=== PATIENT | male | born 1995 | race Hispanic/Latino ===

== ENCOUNTER 2019-07-05 21:04 | Inpatient (IN) | payer OTHER ==
[~2019-07-05] VITALS: Ht 188 cm; Wt 97.7 kg
[2019-07-05 21:28] LABS: HEMATOCRIT 46.2 % (42.0-52.0); MEAN CORPUSCULAR HEMOGLOBIN 30.8 pg (27.0-33.0); MEAN CORPUSCULAR HGB CONC 34.6 g/dl (32.0-36.5); PLATELET COUNT, AUTOMATED 291 10^3/uL (150-450); RED BLOOD COUNT 5.19 10^6/uL (4.30-6.10); WHITE BLOOD COUNT 12.8 10^3/uL (4.0-10.0)
[2019-07-05 22:05] LABS: ACETAMINOPHEN LEVEL < 2.0 UG/ML (10.0-30.0); ALBUMIN 4.5 GM/DL (3.2-5.2); ALT/SGPT 48 U/L (12-78); BILIRUBIN,DIRECT < 0.1 MG/DL (0.0-0.2); BILIRUBIN,TOTAL 0.4 MG/DL (0.2-1.0); BLOOD UREA NITROGEN 13 MG/DL (7-18); CALCIUM LEVEL 9.6 MG/DL (8.5-10.1); CARBON DIOXIDE LEVEL 27 MEQ/L (21-32); CHLORIDE LEVEL 106 MEQ/L (98-107); ETHYL ALCOHOL (ETHANOL) < 0.003 % (0.000-0.010); GLOMERULAR FILTRATION RATE > 60.0 (>60); GLUCOSE, FASTING 99 MG/DL (70-100); POTASSIUM SERUM 4.2 MEQ/L (3.5-5.1); SALICYLATE LEVEL < 1.7 MG/DL (5.0-30.0); SODIUM LEVEL 140 MEQ/L (136-145); TOTAL PROTEIN 8.3 GM/DL (6.4-8.2)
[2019-07-05 22:52] LABS: AMPHETAMINES LEVEL URINE NEGATIVE (NEGATIVE); BARBITURATES URINE NEGATIVE (NEGATIVE); BENZODIAZEPINES URINE NEGATIVE (NEGATIVE); CANNABINOIDS URINE NEGATIVE (NEGATIVE); COCAINE METABOLITE URINE NEGATIVE (NEGATIVE); METHADONE URINE NEGATIVE (NEGATIVE); OPIATES URINE NEGATIVE (NEGATIVE); PHENCYCLIDINE URINE NEGATIVE (NEGATIVE)
[2019-07-05] MEDS ORDERED: MOM 30ML SUSPENSION UDC PO PRN (23:15)
[2019-07-05] MEDS ORDERED: MAALOX 30 ML SUSP *UDC PO PRN (23:15)
[2019-07-05] MEDS ORDERED: traZODone 50 MG TAB PO PRN (23:15)
[2019-07-05] MEDS ORDERED: ACETAMINOPHEN TAB 650MG DOSE (2X325MG) PO PRN (23:15)
[2019-07-06 00:04] VITALS: BP 133/68
[2019-07-06 06:41] VITALS: BP 121/69
[2019-07-06] MEDS: VENLAFAXINE **XR** 37.5 MG CAPSULE PO SCH (11:38)
--- NOTE | 2019-07-06 15:25 | HPEPDOC ---
General Date of Admission Jul 05, 2019 at 23:07 Date of Service: Jul 06, 2019 Chief Complaint The patient is a 24-year-old male admitted with a reason for visit of Unspecified Depressive Disorder. History of Present Illness 24-year-old male with past medical history of psychiatric disorder was admitted to the inpatient mental health unit for psychiatric stabilization. At this time, he denies any complaints of fevers, chills, chest pain, palpitations, abdominal pain, or any nausea/vomiting/diarrhea. No acute overnight events noted. The hospitalist service has been consulted for management of medical comorbidities. Home Medications No Active Prescriptions or Reported Meds Allergies Coded Allergies: No Known Allergies (Unverified , 07/05/19) Past Medical History Medical History No significant past medical history, does have a psychiatric history of depression. Surgical History Denies any surgical history. Social History * Smoker: current smoker (smokes 1-2 cigarettes per week) Alcohol: Denies Drugs: denies Review of Systems Other systems 10 point review of systems negative unless otherwise specified in HPI. Physical Examination General Exam: Positive: Alert, Cooperative, No Acute Distress Eye Exam: Positive: Conjunctiva & lids normal ENT Exam: Positive: Atraumatic, Mucous membr. moist/pink Neck Exam: Negative: JVD Chest Exam: Positive: Clear to auscultation, Normal air movement Heart Exam: Positive: Rate Normal, Normal S1, Normal S2 Abdomen Exam: Positive: Soft; Negative: Tenderness Extremity Exam: Negative: Tenderness, Swelling Neuro Exam: Positive: Normal Speech Psych Exam: Positive: Mental status NL, Mood NL, Oriented x 3 Vital Signs Vital Signs Date Time Temp Pulse Resp B/P (MAP) Pulse Ox O2 Delivery O2 Flow Rate FiO2 07/06/19 06:41 96.9 70 12 121/69 (86) 07/06/19 00:04 100 07/05/19 21:07 Room Air Laboratory Data Labs 24H Laboratory Tests 2 07/05/19 21:22: Nucleated Red Blood Cells % (auto) 0.0, Anion Gap 7L, Glomerular Filtration Rate > 60.0, Calcium Level 9.6, Aspartate Amino Transf (AST/SGOT) 39H, Alanine Aminotransferase (ALT/SGPT) 48, Alkaline Phosphatase 95, Total Bilirubin 0.4, Direct Bilirubin < 0.1, Total Protein 8.3H, Albumin 4.5, Albumin/Globulin Ratio 1.18, Thyroid Stimulating Hormone (TSH) 1.410, Salicylates Level < 1.7L, Acetaminophen Level < 2.0L, Ethyl Alcohol Level < 0.003 07/05/19 22:22: Urine Amphetamines Screen NEGATIVE, Urine Benzodiazepines Screen NEGATIVE, Urine Opiates Screen NEGATIVE, Urine Methadone Screen NEGATIVE, Urine Barbiturates Screen NEGATIVE, Urine Phencyclidine Screen NEGATIVE, Urine Cocaine Metabolite Screen NEGATIVE, Urine Cannabinoids Screen NEGATIVE CBC/BMP Laboratory Tests 07/05/19 21:22 Red Blood Count 5.19, Mean Corpuscular Volume 89.0, Mean Corpuscular Hemoglobin 30.8, Mean Corpuscular Hemoglobin Concent 34.6, Red Cell Distribution Width 12.5 Plan / VTE VTE Prophylaxis Ordered?: No VTE Exclusion Mechanical Proph: Low Risk for VTE Plan Plan Psychiatric disorder Management as per psychiatry DVT prophylaxis Ambulation encouraged MARYANA ANTHONY MD Jul 06, 2019 15:25
[2019-07-06 16:32] VITALS: BP 136/68
--- NOTE | 2019-07-07 00:17 | MHHPE ---
DATE OF ADMISSION: 07/05/2019 CURRENT MEDICATIONS: None. CHIEF COMPLAINT: Suicidal ideation with impulses to cut self with a scalpel. 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 The patient has struggled with depression off and on for a number of years but has never sought any help. He has felt more depressed and suicidal of late. He has had impulses to cut himself with a scalpel. Recent precipitating stressor was going back home to [place] and visiting his family. He feels that he is the least accomplished member of the family. He feels inadequate. His self esteem is poor. When he gets depressed, he complains of lack of energy. He feels lethargic. His appetite is poor. His weight is stable. Concentration is poor. Energy is low. He does get periodic panic attacks, but they are rare. The patient states that he does worry a lot and finds it hard to relax. Precipitating stressor is that he admits to having been accused of sexual harassment with females at work and this may adversely affect is career. PAST PSYCHIATRIC HISTORY: Four years ago the patient tried to cut his wrist with scissors. The patient was drinking heavily at the time and his girlfriend intervened. He did not get any help. He has never had any outpatient or inpatient mental health services. He has never been on psychotropic medications. MEDICAL HISTORY: The patient is healthy. ALLERGIES TO MEDICATIONS: The patient denies. LEGAL HISTORY: The patient denies. CHEMICAL DEPENDENCY: The patient denies, he apparently did have an alcohol issue in the past but he minimizes it. He has never been in a rehabilitation program. SOCIAL HISTORY: The patient was born in [place] [facility] [place] 3 [place]. His father is a doctor and a business flight attendant in [place]. His mother is a housewife. He has two sisters, one is an wash oil pump operator and the other one is a business woman. 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 FAMILY PSYCHIATRIC HISTORY: His mother has a history of depression also, but has never been treated. MENTAL STATUS EXAMINATION: The patient is alert, oriented and cooperative. Affect appears sad. His affect is quite flat. No psychomotor retardation. The patient reports moderate to severe depressive symptoms, depressive suicidal ideation. No signs of rajesh. Grooming and hygiene are quite good. Insight and judgment appear fair. No signs of psychosis. Memory functions appear intact. No signs of organicity. DIAGNOSES: 1. Major depression, recurrent. 2. Chronic anxiety disorder. 3. Generalized anxiety disorder. 4. Rule out alcohol use disorder. Length of stay is 7 to 10 days. PLAN: Start trial of Effexor XR 37.5 mg in the morning. The patient was warned about risk of adverse side effects on antidepressants, including the risk of suicidal ideation. Involve patient in therapeutic milieu and coordinate care with family members. 9.39 confirmed.
[2019-07-07 06:38] VITALS: BP 128/63
[2019-07-07] MEDS: VENLAFAXINE **XR** 37.5 MG CAPSULE PO SCH (08:51)
--- NOTE | 2019-07-07 13:26 | IPN ---
DATE: 07/07/2019 I was asked to see Chris in inpatient mental health unit ([facility]). He was palpitations associated with panic attack. No syncope. No past history of supraventricular tachycardia (SVT), palpitations, or early cardiac disease. PHYSICAL EXAM: Vital signs stable. 128/63. Pulse of 60. General appearance: Resting comfortably. Appears anxious. Lungs: Clear. nonpalpable. No tremor. Heart: Regular rate and rhythm. No murmur. No clicks. No rubs. Abdomen: Soft, nontender. No masses. EKG was normal. TSH was normal. IMPRESSION: Palpitations almost certainly related to panic attacks. I do not see a cardiac cause for these and would direct treatment towards his underlying anxiety problems.
[2019-07-07 18:00] VITALS: BP 140/26
[2019-07-07 21:49] VITALS: BP 140/93
[2019-07-08 06:41] VITALS: BP 138/72
--- NOTE | 2019-07-08 08:52 | MHIPNPDOC ---
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 The patient has struggled with depression off and on for a number of years but has never sought any help. He has felt more depressed and suicidal of late. He has had impulses to cut himself with a scalpel. Recent precipitating stressor was going back home to [place] and visiting his family. He feels that he is the least accomplished member of the family. He feels inadequate. His self esteem is poor. When he gets depressed, he complains of lack of energy. He feels lethargic. His appetite is poor. His weight is stable. Concentration is poor. Energy is low. He does get periodic panic attacks, but they are rare. The patient states that he does worry a lot and finds it hard to relax. Precipitating stressor is that he admits to having been accused of sexual harassment with females at work and this may adversely affect is career. VITAL SIGNS: See below. NEW TEST RESULTS: See below. CURRENT MEDICATIONS: See below. MENTAL STATUS EXAMINATION: The patient is alert, oriented and cooperative. Affect appears sad. His affect is quite flat. No psychomotor retardation. The patient reports improved depressive symptoms, denies suicidal ideation. No signs of rajesh. Grooming and hygiene are quite good. Insight and judgment appear fair. No signs of psychosis. Memory functions appear intact. No signs of organicity. DIAGNOSES: 1. Major depression, recurrent. 2. Chronic anxiety disorder. 3. Generalized anxiety disorder. 4. Rule out alcohol use disorder. ASSESSMENT:Pt seen and states that his mood is better. States he slept well last night but is feeling very "groggy" after taking trazodone last night and is agreeable to decreasing the dose so doesn't feel that way tomorrow. Denies any panic attacks since admission. States his came to visit him yesterday wh ich made him feel good and is looking forward to her coming again today. She is very supportive. Feels he is tolerating his medications and it's beneficial. He is attending groups and finding them helpful. He denies SI/HI, hallucinations, delusions. Pt feels safe here. MANAGEMENT PLAN: continue plan Medications: effexor xr 75mg daily trazodone 25mg qhs prn insomnia TIME SPENT: 30 minutes. Vital Signs Vital Signs Date Time Temp Pulse Resp B/P (MAP) Pulse Ox O2 Delivery O2 Flow Rate FiO2 07/08/19 06:41 97.2 68 12 138/72 (94) 07/06/19 00:04 100 07/05/19 21:07 Room Air Current Medications Current Medications Medications (Trade) Dose Ordered Sig/Magdalena Route PRN Reason Start Time Stop Time Status Last Admin Dose Admin Acetaminophen (Tylenol Tab) 650 mg Q6HP PRN PO HEADACHE or DISCOMFORT 07/05/19 23:15 Al Hydrox/Mg Hydrox/Simethicone (Mylanta) 30 ml Q4HP PRN PO HEARTBURN/INDIGESTION 07/05/19 23:15 Home Med (Med Rec Complete!) ASDIRECTED XX 07/05/19 23:45 07/05/19 23:45 DC Magnesium Hydroxide (Milk Of Magnesia) 30 ml DAILYPRN PRN PO CONSTIPATION 07/05/19 23:15 Trazodone HCl (Desyrel) 50 mg QHSP PRN PO INSOMNIA 07/05/19 23:15 07/07/19 21:47 Venlafaxine HCl (Effexor Xr) 37.5 mg DAILY PO 07/06/19 11:00 07/07/19 14:19 DC 07/07/19 08:51 Venlafaxine HCl (Effexor Xr) 75 mg DAILY PO 07/08/19 09:00 Allergies Coded Allergies: No Known Allergies (Unverified , 07/05/19) MARYURI SHAHID DO Jul 08, 2019 8:52 am
[2019-07-08] MEDS: VENLAFAXINE **XR** 75MG CAPSULE PO SCH (09:49)
--- NOTE | 2019-07-08 13:34 | MHIPN ---
DATE: 07/07/2019 VITAL SIGNS: Temperature 98.0, pulse 60, respirations 12, blood pressure 128/63. CURRENT MEDICATIONS: Effexor XR 37.5 mg every morning. HISTORY OF PRESENT ILLNESS: Patient states his visited yesterday and was quite supportive. This was very reassuring for the patient. Patient is still feeling anxious. He had some palpitations. He was seen by the hospitalist, who was not concerned of any cardiac issues. Patient still feels depressed with some racing thoughts. Patient has been on low-dose Effexor for several days now. He is not sure but thinks his mood might be slightly better. He is going to increase the dosage. He has had no adverse side effects from the Effexor at this time. He claims he feels a bit more energetic and motivated since being on it. Patient has been to a few groups. He is encouraged to attend all group therapy functions. MENTAL STATUS EXAMINATION: Patient is alert, oriented, and cooperative. Grooming and hygiene appear quite good. Affect still remains sad. Mood is moderately depressed. He denies current suicidal ideation. He is not psychotic. No signs of rajesh. Insight and judgment remain fair. No signs of organicity DIAGNOSES: 1. Major depressive disorder, recurrent. 2. Panic/anxiety disorder. 3. Generalized anxiety disorder. 4. Rule out alcohol use disorder. PLAN: Increase the Effexor XR to 75 mg every morning. Patient is advised that Dr. Fu will be taking over responsibility for his care tomorrow. Patient encouraged to followup with the milieu therapy program. Staff to monitor for any potential side effects on the Effexor.
[2019-07-08 18:00] VITALS: BP 149/68
[2019-07-08] MEDS: traZODone 25MG PER 1/2 TABLET PO PRN (22:27)
[2019-07-09 06:36] VITALS: BP 128/74
--- NOTE | 2019-07-09 08:41 | MHIPNPDOC ---
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 The patient has struggled with depression off and on for a number of years but has never sought any help. He has felt more depressed and suicidal of late. He has had impulses to cut himself with a scalpel. Recent precipitating stressor was going back home to [place] and visiting his family. He feels that he is the least accomplished member of the family. He feels inadequate. His self esteem is poor. When he gets depressed, he complains of lack of energy. He feels lethargic. His appetite is poor. His weight is stable. Concentration is poor. Energy is low. He does get periodic panic attacks, but they are rare. The patient states that he does worry a lot and finds it hard to relax. Precipitating stressor is that he admits to having been accused of sexual harassment with females at work and this may adversely affect is career. VITAL SIGNS: See below. NEW TEST RESULTS: See below. CURRENT MEDICATIONS: See below. MENTAL STATUS EXAMINATION: The patient is alert, oriented and cooperative. Affect appears sad. His affect is quite flat. No psychomotor retardation. The patient reports improved depressive symptoms, denies suicidal ideation. Continued anxiety and panic occasionally. No signs of rajesh. Grooming and hygiene are quite good. Insight and judgment appear fair. No signs of psychosis. Memory functions appear intact. No signs of organicity. DIAGNOSES: 1. Major depression, recurrent. 2. Chronic anxiety disorder. 3. Generalized anxiety disorder. 4. Rule out alcohol use disorder. ASSESSMENT:Pt seen and states that his mood is better. States he slept well last night and the half dose of Trazodone was much better as no longer "drowsy" as he was yesterday. States he had a minor panic attack yesterday mostly over the "unknown" regarding what will happen in the future with his career in the [employer] and his help him thru with deep breathing. Agreeable to vistaril prn anxiety. His is very supportive. Feels he is tolerating his medications and it's beneficial. He is attending groups and finding them helpful. He denies SI/HI, hallucinations, delusions. Pt feels safe here. MANAGEMENT PLAN: continue plan. add vistaril prn anxiety Medications: effexor xr 75mg daily trazodone 25mg qhs prn insomnia vistaril 25mg q6hr prn anxiety TIME SPENT: 30 minutes. Vital Signs Vital Signs Date Time Temp Pulse Resp B/P (MAP) Pulse Ox O2 Delivery O2 Flow Rate FiO2 07/09/19 06:36 98.8 61 16 128/74 (92) 07/06/19 00:04 100 07/05/19 21:07 Room Air Current Medications Current Medications Medications (Trade) Dose Ordered Sig/Magdalena Route PRN Reason Start Time Stop Time Status Last Admin Dose Admin Acetaminophen (Tylenol Tab) 650 mg Q6HP PRN PO HEADACHE or DISCOMFORT 07/05/19 23:15 Al Hydrox/Mg Hydrox/Simethicone (Mylanta) 30 ml Q4HP PRN PO HEARTBURN/INDIGESTION 07/05/19 23:15 Home Med (Med Rec Complete!) ASDIRECTED XX 07/05/19 23:45 07/05/19 23:45 DC Magnesium Hydroxide (Milk Of Magnesia) 30 ml DAILYPRN PRN PO CONSTIPATION 07/05/19 23:15 Trazodone HCl (Desyrel) 25 mg QHSP PRN PO INSOMNIA 07/08/19 09:45 07/08/19 22:27 Trazodone HCl (Desyrel) 50 mg QHSP PRN PO INSOMNIA 07/05/19 23:15 07/08/19 09:40 DC 07/07/19 21:47 Venlafaxine HCl (Effexor Xr) 37.5 mg DAILY PO 07/06/19 11:00 07/07/19 14:19 DC 07/07/19 08:51 Venlafaxine HCl (Effexor Xr) 75 mg DAILY PO 07/08/19 09:00 07/08/19 09:49 Allergies Coded Allergies: No Known Allergies (Unverified , 07/05/19) MARYURI SHAHID DO Jul 09, 2019 8:41 am
[2019-07-09] MEDS ORDERED: hydrOXYzine 25 MG TAB PO PRN (08:45)
--- NOTE | 2019-07-09 09:07 | ECGEPIP ---
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
[2019-07-09] MEDS: VENLAFAXINE **XR** 75MG CAPSULE PO SCH (09:31)
[2019-07-09 18:30] VITALS: BP 130/65
[2019-07-09] MEDS: traZODone 25MG PER 1/2 TABLET PO PRN (21:09)
[2019-07-10 06:34] VITALS: BP 121/65
[2019-07-10] MEDS: VENLAFAXINE **XR** 75MG CAPSULE PO SCH (08:14)
[2019-07-10 18:00] VITALS: BP 136/74
[2019-07-10] MEDS: traZODone 25MG PER 1/2 TABLET PO PRN (23:00)
[2019-07-11 06:42] VITALS: BP 118/63
[2019-07-11] MEDS: VENLAFAXINE **XR** 75MG CAPSULE PO SCH (08:58)
[2019-07-11 18:00] VITALS: BP 124/69
[2019-07-11] MEDS: traZODone 25MG PER 1/2 TABLET PO PRN (22:36)
[2019-07-12 06:36] VITALS: BP 130/72
[2019-07-12] MEDS: VENLAFAXINE **XR** 75MG CAPSULE PO SCH (10:02)
--- NOTE | 2019-07-12 10:13 | MHIPNPDOC ---
[facility] Progress Note Progress Note DATE OF SERVICE: 07/12/19 HISTORY: Per Dr. 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 The patient has struggled with depression off and on for a number of years but has never sought any help. He has felt more depressed and suicidal of late. He has had impulses to cut himself with a scalpel. Recent precipitating stressor was going back home to [place] and visiting his family. He feels that he is the least accomplished member of the family. He feels inadequate. His self esteem is poor. When he gets depressed, he complains of lack of energy. He feels lethargic. His appetite is poor. His weight is stable. Concentration is poor. Energy is low. He does get periodic panic attacks, but they are rare. The patient states that he does worry a lot and finds it hard to relax. Precipitating stressor is that he admits to having been accused of sexual harassment with females at work and this may adversely affect is career." VITAL SIGNS: See below. NEW TEST RESULTS: See below. CURRENT MEDICATIONS: See below. MENTAL STATUS EXAMINATION: The patient is alert, oriented and cooperative. Affect appears sad. His affect is quite flat. No psychomotor retardation. The patient reports improved depressive and anxiety/panic symptoms, denies suicidal ideation. No signs of rajesh. Grooming and hygiene are quite good. Insight and judgment appear fair. No signs of psychosis. Memory functions appear intact. No signs of organicity. DIAGNOSES: 1. Major depression, recurrent. 2. Chronic anxiety disorder. 3. Generalized anxiety disorder. 4. Rule out alcohol use disorder. ASSESSMENT:Pt seen and states that his mood is better and that he feels overall "calmer". States he's tolerating his medication well and is now finding it beneficial. States vistaril is beneficial for his anxiety and is tolerating it well. Denies any panic symptoms thru out the weekend. States he slept well last night. His is very supportive and visited him thru out the weekend which was good. Feels he is tolerating his medications and it's beneficial. He is attending groups and finding them helpful. He denies SI/HI, hallucinations, delusions. Pt feels safe here. MANAGEMENT PLAN: continue plan. Medications: effexor xr 75mg daily trazodone 25mg qhs prn insomnia vistaril 25mg q6hr prn anxiety TIME SPENT: 30 minutes. Vital Signs Vital Signs Date Time Temp Pulse Resp B/P (MAP) Pulse Ox O2 Delivery O2 Flow Rate FiO2 07/12/19 06:36 98.2 70 12 130/72 (91) 07/06/19 00:04 100 Current Medications Current Medications Medications (Trade) Dose Ordered Sig/Magdalena Route PRN Reason Start Time Stop Time Status Last Admin Dose Admin Acetaminophen (Tylenol Tab) 650 mg Q6HP PRN PO HEADACHE or DISCOMFORT 07/05/19 23:15 Al Hydrox/Mg Hydrox/Simethicone (Mylanta) 30 ml Q4HP PRN PO HEARTBURN/INDIGESTION 07/05/19 23:15 Home Med (Med Rec Complete!) ASDIRECTED XX 07/05/19 23:45 07/05/19 23:45 DC Hydroxyzine HCl (Atarax) 25 mg Q6HP PRN PO ANXIETY 07/09/19 08:45 Magnesium Hydroxide (Milk Of Magnesia) 30 ml DAILYPRN PRN PO CONSTIPATION 07/05/19 23:15 Trazodone HCl (Desyrel) 25 mg QHSP PRN PO INSOMNIA 07/08/19 09:45 07/11/19 22:36 Trazodone HCl (Desyrel) 50 mg QHSP PRN PO INSOMNIA 07/05/19 23:15 07/08/19 09:40 DC 07/07/19 21:47 Venlafaxine HCl (Effexor Xr) 37.5 mg DAILY PO 07/06/19 11:00 07/07/19 14:19 DC 07/07/19 08:51 Venlafaxine HCl (Effexor Xr) 75 mg DAILY PO 07/08/19 09:00 07/12/19 10:02 Allergies Coded Allergies: No Known Allergies (Unverified , 07/05/19) MARYURI SHAHID DO Jul 12, 2019 10:13 am
[2019-07-12 18:15] VITALS: BP 136/68
[2019-07-13 06:34] VITALS: BP 126/72
[2019-07-13] MEDS ORDERED: VENL75CA47 PO (08:43)
[2019-07-13] MEDS ORDERED: HYDR-3363 PO (08:43)
[2019-07-13] MEDS ORDERED: TRAZ-252 PO (08:43)
--- NOTE | 2019-07-13 08:44 | MHDSPDOC ---
[facility] Discharge Summary Discharge Summary DATE OF ADMISSION: Jul 05, 2019 at 11:07 pm DATE OF DISCHARGE: Jul 13, 2019 DISCHARGE DIAGNOSES: 1. Major depression, recurrent. 2. Chronic anxiety disorder. 3. Generalized anxiety disorder. 4. Rule out alcohol use disorder. REASON FOR ADMISSION: Per Dr. 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 The patient has struggled with depression off and on for a number of years but has never sought any help. He has felt more depressed and suicidal of late. He has had impulses to cut himself with a scalpel. Recent precipitating stressor was going back home to [place] and visiting his family. He feels that he is the least accomplished member of the family. He feels inadequate. His self esteem is poor. When he gets depressed, he complains of lack of energy. He feels lethargic. His appetite is poor. His weight is stable. Concentration is poor. Energy is low. He does get periodic panic attacks, but they are rare. The patient states that he does worry a lot and finds it hard to relax. Precipitating stressor is that he admits to having been accused of sexual harassment with females at work and this may adversely affect is career." CONSULTANTS INVOLVED: none TREATMENT AND PROGRESS ON THE UNIT : Pt was admitted to [facility], seen for psychiatric assessment and started on effexor xr 75mg daily. He was provided vistaril 25mg q6hr prn anxietyand trazodone 25mg qhs prn insomnia. Pt found his medications beneficial and tolerated them well. He attended groups daily during his stay. His symptoms improved with treatment. On day of discharge he denied depression, anxiety, insomnia, SI/HI, hallucinations, delusions. He was discharged home after Thuan meeting with follow-up at [facility]. He felt safe for discharge. DISCHARGE ASSESSMENT: Pt seen and states that his mood is "good" and he's looking forward to going home to his today with his Thuan. States he's tolerating his medication well and is finding it beneficial. States vistaril is beneficial for his anxiety and is tolerating it well. Denies any panic symptoms thru out the weekend and yesterday. States he slept well last night. His is very supportive and visited him thru out the weekend which was good. He is attending groups and finding them helpful. He denies depression, anxiety, panic, insomnia, SI/HI, hallucinations, delusions. Pt feels safe to be discharged home with his Thuan. MENTAL STATUS EXAMINATION ON DISCHARGE: The patient is alert, oriented and cooperative. Affect appears euthymic and full range. His mood is "good". No psychomotor retardation. The patient denies depressive and anxiety/panic symptoms, denies suicidal ideation/homicidal ideation. No signs of rajesh. Grooming and hygiene are quite good. Insight and judgment appear good. No signs of psychosis. Memory functions appear intact. No signs of organicity. MEDICATIONS ON DISCHARGE: effexor xr 75mg daily trazodone 25mg qhs prn insomnia vistaril 25mg q6hr prn anxiety PLAN/FOLLOWUP ARRANGEMENTS: D/c home with Thuan with follow-up [facility]. The amount of time spent in the coordination of care for this patient was a pproximately 30 minutes. Vital Signs/I&Os Vital Signs Date Time Temp Pulse Resp B/P (MAP) Pulse Ox O2 Delivery O2 Flow Rate FiO2 07/13/19 06:34 98.5 78 14 126/72 (90) Medications No Active Prescriptions or Reported Meds Allergies Coded Allergies: No Known Allergies (Unverified , 07/05/19) MARYURI SHAHID DO Jul 13, 2019 8:44 am
[2019-07-13] MEDS: VENLAFAXINE **XR** 75MG CAPSULE PO SCH (09:26)
== END 2019-07-13 12:30 | disposition home or self-care (01) | DRG 885 ==
LOC: M ED 21:04 → M ED INP 23:07 → M PSY 23:58
PROVIDERS: ADMIT Psychiatry & Neurology Psychiatry; ATTEND Psychiatry & Neurology Psychiatry
DX: F33.9 Major depressive disorder, recurrent, unspecified (principal); F41.0 Panic disorder [episodic paroxysmal anxiety]; F10.10 Alcohol abuse, uncomplicated; F41.1 Generalized anxiety disorder; F17.210 Nicotine dependence, cigarettes, uncomplicated; Z81.8 Family history of other mental and behavioral disorders